=== PATIENT | male | born 1960 | race Caucasian/White ===

== ENCOUNTER 2016-07-20 15:19 | Inpatient (IN) | payer MEDICAID ==
[~2016-07-20] VITALS: Ht 180.3 cm; Wt 101.4 kg
[~2016-07-20 15:19] MED LIST: AMLO5TAB2 PO; ASPI-498 OR; ATOR20TA PO; BENA20TA4 PO; FAMO-12 PO; GABA100C PO; MELO-85 PO; NOR5T PO; TEMA15CA5 PO; TIZA4CAP5 PO
[2016-07-20 15:52] LABS: Basophils # (auto) 0 uL; Basophils % (auto) 0.5 % (0.0-2.0); Eosinophils # (auto) 0.1 uL; Eosinophils % (auto) 1.6 % (0.0-7.0); Hematocrit 46.5 % (41.0-53.0); Lymphocytes # (auto) 1.6 uL; Lymphocytes % (auto) 20.2 % (10.0-50.0); Mean Corpuscular Hemoglobin 28.6 pg (28.0-32.0); Mean Corpuscular Hgb Conc. 32.3 g/dL (32.0-36.0); Mean Corpuscular Volume 88.6 fL (80.0-100.0); Mean Platelet Volume 8.5 fL (7.4-10.4); Monocytes # (auto) 0.7 uL; Monocytes % (auto) 8.3 % (0.0-12.0); Neutrophils # (auto) 5.6 uL; Neutrophils % (auto) 69.4 % (37.0-80.0); Platelet Count (auto) 318 10^3/uL (140-450); Red Cell Distribution Width 13.8 % (11.6-16.0); White Blood Cell 8.1 10^3/uL (4.4-10.8)
[2016-07-20 16:15] LABS: Albumin 4.5 g/dL (3.4-5.0); BUN/Creatinine Ratio 13.3; Bilirubin, Total 1.1 mg/dL (0.2-1.0); Calcium 9.1 mg/dL (8.5-10.1); Magnesium 2.5 mg/dL (1.6-2.6); Potassium 3.8 mmol/L (3.5-5.1); Total Protein 8.3 g/dL (6.4-8.2)
[2016-07-20] MEDS ORDERED: ASPirin 81 mg TAB PO ONE (19:30)
[2016-07-20] MEDS ORDERED: MORPHINE SULF INJ 2 MG/ML SYRINGE 1ML IV ONE (19:45)
[2016-07-20] MEDS ORDERED: ONDANSETRON HCL 4 MG/2 ML VIAL IV ONE (19:45)
[2016-07-20 20:01] LABS: INR 1.04 (0.9-1.15); Partial Thromboplastin Time 25.4 sec (22.64-33.71); Prothrombin Time 10.7 sec (9.37-12.3)
[2016-07-20 20:10] LABS: B-Type Natriuretic Peptide 12.13 pg/mL (0-100)
[2016-07-20 20:12] LABS: Temperature: 22.7 C (20.0-25.0)
[2016-07-20] MEDS ORDERED: NITROGLYCERIN 0.4 MG SL TAB SL PRN (22:15)
[2016-07-20] MEDS ORDERED: ACETAMINOPHEN 325 MG TAB PO PRN (22:15)
[2016-07-20] MEDS ORDERED: ONDANSETRON HCL 4 MG/2 ML VIAL IV PRN (22:15)
[2016-07-20] MEDS ORDERED: MORPHINE SULF INJ 2 MG/ML SYRINGE 1ML IV PRN (22:15)
[2016-07-21] MEDS ORDERED: METO25TA62 PO (01:27)
[2016-07-21 05:30] VITALS: BP 105/63
[2016-07-21 05:49] LABS: Basophils # (auto) 0 uL; Basophils % (auto) 0.6 % (0.0-2.0); Eosinophils # (auto) 0.1 uL; Eosinophils % (auto) 1.9 % (0.0-7.0); Hematocrit 43.9 % (41.0-53.0); Hemoglobin 14.1 g/dL (13.5-17.5); Lymphocytes # (auto) 2.3 uL; Lymphocytes % (auto) 31.1 % (10.0-50.0); Mean Corpuscular Hemoglobin 28.6 pg (28.0-32.0); Mean Corpuscular Hgb Conc. 32.1 g/dL (32.0-36.0); Mean Corpuscular Volume 89.3 fL (80.0-100.0); Mean Platelet Volume 8.6 fL (7.4-10.4); Monocytes # (auto) 0.8 uL; Monocytes % (auto) 11.3 % (0.0-12.0); Neutrophils # (auto) 4.1 uL; Neutrophils % (auto) 55.1 % (37.0-80.0); Platelet Count (auto) 304 10^3/uL (140-450); Red Cell Distribution Width 13.5 % (11.6-16.0); White Blood Cell 7.4 10^3/uL (4.4-10.8)
[2016-07-21] MEDS: GABAPENTIN 100 MG CAP PO SCH ×3 (06:02→21:33)
[2016-07-21 06:16] LABS: Albumin 3.7 g/dL (3.4-5.0); BUN/Creatinine Ratio 13.5; Bilirubin, Total 0.9 mg/dL (0.2-1.0); Calcium 8.8 mg/dL (8.5-10.1); Potassium 4.3 mmol/L (3.5-5.1); Total Protein 7.1 g/dL (6.4-8.2)
[2016-07-21 08:25] VITALS: BP 111/66
[2016-07-21] MEDS ORDERED: TAM04C PO (08:44)
[2016-07-21] MEDS ORDERED: MAGN400T21 PO (08:44)
[2016-07-21] MEDS ORDERED: ATOR40TA52 PO (08:44)
[2016-07-21] MEDS ORDERED: METO-169 PO (08:44)
[2016-07-21] MEDS ORDERED: FINA5TAB4 PO (08:44)
[2016-07-21] MEDS: ASPirin 81 mg TAB PO SCH (09:20)
[2016-07-21] MEDS: BENAZEPRIL HCL 10 MG TAB PO SCH (09:21)
[2016-07-21] MEDS: amLODIPine BESYLATE 5 MG TAB PO SCH (09:22)
[2016-07-21] MEDS: FAMOTIDINE 20 MG TAB PO SCH ×2 (09:22→21:34)
[2016-07-21] MEDS: HYDROcodone-ACET 5/325MG TAB PO PRN (09:23)
[2016-07-21] MEDS: ENOXAPARIN SOD 40 MG/0.4 ML SYRINGE SC SCH (09:23)
[2016-07-21 12:45] VITALS: BP 118/70
[2016-07-21 17:21] VITALS: BP 124/76
[2016-07-21] MEDS: ATORVASTATIN 20 MG TAB PO SCH (21:33)
[2016-07-21] MEDS: TEMAZEPAM 15 MG CAP PO PRN (21:34)
[2016-07-21 22:00] VITALS: BP 106/64
[2016-07-22 05:00] VITALS: BP 106/64
[2016-07-22] MEDS: GABAPENTIN 100 MG CAP PO SCH ×3 (05:45→21:13)
[2016-07-22] MEDS: HYDROcodone-ACET 5/325MG TAB PO PRN ×2 (05:46→20:15)
[2016-07-22 06:19] LABS: Calcium 8.8 mg/dL (8.5-10.1); Potassium 4.5 mmol/L (3.5-5.1)
[2016-07-22 06:21] LABS: BUN/Creatinine Ratio 14.1
[2016-07-22 09:00] VITALS: BP 107/69
[2016-07-22] MEDS: FAMOTIDINE 20 MG TAB PO SCH ×2 (09:57→21:14)
[2016-07-22] MEDS: ASPirin 81 mg TAB PO SCH (09:58)
[2016-07-22] MEDS: amLODIPine BESYLATE 5 MG TAB PO SCH (09:58)
[2016-07-22] MEDS: ENOXAPARIN SOD 40 MG/0.4 ML SYRINGE SC SCH (09:58)
[2016-07-22] MEDS: BENAZEPRIL HCL 10 MG TAB PO SCH (09:58)
[2016-07-22] MEDS ORDERED: METOPROLOL TARTRATE 25 MG TAB PO SCH (11:00)
[2016-07-22 13:00] VITALS: BP 107/70
[2016-07-22 17:00] VITALS: BP 104/68
[2016-07-22 21:02] VITALS: BP 114/71
[2016-07-22] MEDS: METOPROLOL TARTRATE 25 MG TAB PO SCH (21:13)
[2016-07-22] MEDS: TEMAZEPAM 15 MG CAP PO PRN (21:14)
[2016-07-22] MEDS: ATORVASTATIN 20 MG TAB PO SCH (21:14)
[2016-07-23 05:04] VITALS: BP 116/69
[2016-07-23] MEDS: GABAPENTIN 100 MG CAP PO SCH ×2 (05:38→14:14)
[2016-07-23] MEDS: HYDROcodone-ACET 5/325MG TAB PO PRN (05:45)
[2016-07-23 09:00] VITALS: BP 124/73
[2016-07-23] MEDS: ENOXAPARIN SOD 40 MG/0.4 ML SYRINGE SC SCH (09:41)
[2016-07-23] MEDS: FAMOTIDINE 20 MG TAB PO SCH (09:41)
[2016-07-23] MEDS: ASPirin 81 mg TAB PO SCH (09:42)
[2016-07-23] MEDS: BENAZEPRIL HCL 10 MG TAB PO SCH (09:42)
[2016-07-23] MEDS: METOPROLOL TARTRATE 25 MG TAB PO SCH (09:43)
[2016-07-23] MEDS: amLODIPine BESYLATE 5 MG TAB PO SCH (12:34)
[2016-07-23 14:55] VITALS: BP 119/79
== END 2016-07-23 15:30 | disposition home or self-care (01) | DRG 198 ==
LOC: ER 15:24 → TELE 15:25 → TELE-WESTW 23:18
PROVIDERS: ADMIT Internal Medicine; ATTEND Internal Medicine
DX: R07.89 Other chest pain (principal); I25.110 Atherosclerotic heart disease of native coronary artery with unstable angina pectoris; G62.9 Polyneuropathy, unspecified; I10 Essential (primary) hypertension; E66.9 Obesity, unspecified; Z82.0 Family history of epilepsy and other diseases of the nervous system; Z82.3 Family history of stroke; Z82.49 Family history of ischemic heart disease and other diseases of the circulatory system; Z83.3 Family history of diabetes mellitus; Z86.73 Personal history of transient ischemic attack (TIA), and cerebral infarction without residual deficits; Z87.442 Personal history of urinary calculi; E78.5 Hyperlipidemia, unspecified; K21.9 Gastro-esophageal reflux disease without esophagitis; Z82.61 Family history of arthritis; Z88.8 Allergy status to other drugs, medicaments and biological substances
CPT/HCPCS: 36415; 71020; 80048; 80053; 83735; 83880; 84443; 84484; 85025; 85379; 85610; 85730; 93005; 93306; 94761; 96374; 96375; J2405

== ENCOUNTER 2016-10-21 22:17 | Inpatient (IN) | payer MEDICAID ==
[~2016-10-21] VITALS: Ht 180.3 cm; Wt 103.6 kg
[~2016-10-21 22:17] MED LIST changes: -ATOR20TA PO; +ATOR40TA52 PO; +FINA5TAB4 PO; +MAGN400T21 PO; +METO-169 PO; +TAM04C PO
[2016-10-21] MEDS ORDERED: PHENAZOPYRIDINE PO (23:03)
[2016-10-21] MEDS ORDERED: SULFAMETH PO (23:03)
[2016-10-21] MEDS ORDERED: TRIMETHOPRIM PO (23:03)
[2016-10-21 23:07] LABS: Basophils # (auto) 0 uL; Basophils % (auto) 0.3 % (0.0-2.0); Eosinophils # (auto) 0 uL; Eosinophils % (auto) 0.4 % (0.0-7.0); Hematocrit 41.9 % (41.0-53.0); Hemoglobin 14.4 g/dL (13.5-17.5); Lymphocytes # (auto) 1.7 uL; Lymphocytes % (auto) 17.4 % (10.0-50.0); Mean Corpuscular Hemoglobin 30.2 pg (28.0-32.0); Mean Corpuscular Hgb Conc. 34.3 g/dL (32.0-36.0); Mean Platelet Volume 8.6 fL (7.4-10.4); Monocytes # (auto) 0.8 uL; Monocytes % (auto) 7.8 % (0.0-12.0); Neutrophils # (auto) 7.4 uL; Neutrophils % (auto) 74.1 % (37.0-80.0); Platelet Count (auto) 333 10^3/uL (140-450); Red Cell Distribution Width 13.8 % (11.6-16.0)
[2016-10-21 23:20] LABS: Albumin 3.7 g/dL (3.4-5.0); Anion Gap 10 (5-15); Aspartate Aminotransferase 18 U/L (15-37); BUN/Creatinine Ratio 12.1; Blood Urea Nitrogen 12 mg/dL (7-18); Calcium 8.5 mg/dL (8.5-10.1); Carbon Dioxide 24 mmol/L (21-32); Chloride 106 mmol/L (98-107); GFR African American 102 mL/min; GFR Non-African American 84 mL/min; Glucose 117 mg/dL (74-106); Sodium 140 mmol/L (136-145)
[2016-10-21 23:28] LABS: B-Type Natriuretic Peptide 5.36 pg/mL (0-100)
[2016-10-21 23:30] LABS: Temperature: 23.3 C (20.0-25.0)
[2016-10-21 23:31] LABS: Alkaline Phosphatase 67 U/L (45-117); Bilirubin, Total 0.8 mg/dL (0.2-1.0); Total Protein 7.5 g/dL (6.4-8.2)
[2016-10-22 00:57] LABS: Urine Bilirubin Negative (Negative); Urine Blood 3+ /uL (Negative); Urine Color Brown (Yellow); Urine Glucose Normal (Normal); Urine Ketone Negative (Negative); Urine Nitrite Negative (Negative); Urine RBC 86 /hpf (0 - 3); Urine Urobilinogen Normal (Negative)
[2016-10-22 00:58] LABS: Urine Mucus FEW (None Seen); Urine Squamous Epithelial Cell FEW /hpf (<5)
[2016-10-22] MEDS ORDERED: ONDANSETRON HCL 4 MG/2 ML VIAL IV ONE (01:45)
[2016-10-22] MEDS ORDERED: HYDROmorphone HCL 2 MG/ML VL IV ONE (01:45)
[2016-10-22] MEDS ORDERED: LORazepam 2MG/ML-1ML VIAL IV ONE (02:00)
[2016-10-22] MEDS ORDERED: ONDANSETRON HCL 4 MG/2 ML VIAL IV PRN (06:45)
[2016-10-22] MEDS ORDERED: HYDROcodone-ACET 5/325MG TAB PO PRN (06:45)
[2016-10-22] MEDS ORDERED: ACETAMINOPHEN 325 MG TAB PO PRN (06:45)
[2016-10-22] MEDS: SODIUM CHLORIDE 0.9% 1,000 ML IV SCH ×2 (06:48→21:08)
[2016-10-22 09:00] VITALS: BP 112/68
[2016-10-22 09:14] LABS: Hematocrit 42.4 % (41.0-53.0); Hemoglobin 14.3 g/dL (13.5-17.5)
[2016-10-22] MEDS: METOPROLOL SUCCINATE XL 50 MG TAB PO SCH (10:00)
[2016-10-22] MEDS: BENAZEPRIL HCL 10 MG TAB PO SCH (10:00)
[2016-10-22] MEDS: FINASTERIDE 5 MG TAB PO SCH (10:49)
[2016-10-22] MEDS: amLODIPine BESYLATE 5 MG TAB PO SCH (10:49)
[2016-10-22] MEDS: FAMOTIDINE 20 MG TAB PO SCH ×2 (10:49→21:31)
[2016-10-22] MEDS: cefTRIAXone 1GM/50ML D5W 50 ML IV SCH (10:50)
[2016-10-22] MEDS ORDERED: OXYCODONE W/ ACETAMINOPHEN 5/325MG TABLET PO PRN (11:15)
[2016-10-22] MEDS: OXYCODONE W/ ACETAMINOPHEN 5/325MG TABLET PO PRN (11:48)
[2016-10-22 13:00] VITALS: BP 114/70
[2016-10-22] MEDS: GABAPENTIN 300 MG CAP PO SCH ×2 (14:12→21:31)
[2016-10-22 17:00] VITALS: BP 120/68
[2016-10-22] MEDS: TEMAZEPAM 15 MG CAP PO PRN (21:31)
[2016-10-22] MEDS: ATORVASTATIN 20 MG TAB PO SCH (21:31)
[2016-10-22] MEDS: KETOROLAC TROMETH 30 MG/ML 1ML VIAL IV PRN (21:32)
[2016-10-22 22:00] VITALS: BP 134/84
[2016-10-23 05:00] VITALS: BP 133/89
[2016-10-23] MEDS: GABAPENTIN 300 MG CAP PO SCH ×3 (05:44→22:34)
[2016-10-23] MEDS: KETOROLAC TROMETH 30 MG/ML 1ML VIAL IV PRN ×2 (05:45→15:55)
[2016-10-23 05:46] LABS: Basophils # (auto) 0 uL; Basophils % (auto) 0.6 % (0.0-2.0); Eosinophils # (auto) 0.3 uL; Hematocrit 41.2 % (41.0-53.0); Hemoglobin 13.9 g/dL (13.5-17.5); Lymphocytes # (auto) 2.1 uL; Lymphocytes % (auto) 31.2 % (10.0-50.0); Mean Corpuscular Hemoglobin 29.7 pg (28.0-32.0); Mean Corpuscular Hgb Conc. 33.8 g/dL (32.0-36.0); Mean Corpuscular Volume 87.9 fL (80.0-100.0); Mean Platelet Volume 8.5 fL (7.4-10.4); Monocytes # (auto) 0.6 uL; Monocytes % (auto) 9.3 % (0.0-12.0); Neutrophils # (auto) 3.6 uL; Neutrophils % (auto) 54.9 % (37.0-80.0); Platelet Count (auto) 317 10^3/uL (140-450); Red Cell Distribution Width 13.4 % (11.6-16.0); White Blood Cell 6.6 10^3/uL (4.4-10.8)
[2016-10-23 06:03] LABS: Potassium 4.4 mmol/L (3.5-5.1)
[2016-10-23 06:07] LABS: Albumin 3.2 g/dL (3.4-5.0); BUN/Creatinine Ratio 18.3; Calcium 8.6 mg/dL (8.5-10.1)
[2016-10-23 06:09] LABS: Bilirubin, Total 0.6 mg/dL (0.2-1.0); Total Protein 6.8 g/dL (6.4-8.2)
[2016-10-23 08:16] VITALS: BP 122/65
[2016-10-23] MEDS: OXYCODONE W/ ACETAMINOPHEN 5/325MG TABLET PO PRN (09:57)
[2016-10-23] MEDS: cefTRIAXone 1GM/50ML D5W 50 ML IV SCH (09:57)
[2016-10-23] MEDS: FAMOTIDINE 20 MG TAB PO SCH ×2 (10:00→22:34)
[2016-10-23] MEDS: FINASTERIDE 5 MG TAB PO SCH (10:00)
[2016-10-23] MEDS: BENAZEPRIL HCL 10 MG TAB PO SCH (10:00)
[2016-10-23] MEDS: METOPROLOL SUCCINATE XL 50 MG TAB PO SCH (10:00)
[2016-10-23] MEDS: amLODIPine BESYLATE 5 MG TAB PO SCH (10:00)
[2016-10-23] MEDS: SODIUM CHLORIDE 0.9% 1,000 ML IV SCH (11:49)
[2016-10-23 13:00] VITALS: BP 132/79
[2016-10-23] MEDS ORDERED: MECLIZINE HCL 25 MG TAB PO PRN (14:45)
[2016-10-23 16:41] VITALS: BP 111/75
[2016-10-23 21:04] VITALS: BP 110/70
[2016-10-23] MEDS: ATORVASTATIN 20 MG TAB PO SCH (22:34)
[2016-10-23] MEDS: TEMAZEPAM 15 MG CAP PO PRN (22:37)
[2016-10-24] MEDS: SODIUM CHLORIDE 0.9% 1,000 ML IV SCH (03:20)
[2016-10-24 05:00] VITALS: BP 101/69
[2016-10-24] MEDS: GABAPENTIN 300 MG CAP PO SCH (05:52)
[2016-10-24] MEDS ORDERED: MECL-87 PO (08:01)
[2016-10-24 08:41] VITALS: BP 121/71
[2016-10-24] MEDS: cefTRIAXone 1GM/50ML D5W 50 ML IV SCH (09:00)
[2016-10-24] MEDS: FINASTERIDE 5 MG TAB PO SCH (09:58)
[2016-10-24] MEDS: METOPROLOL SUCCINATE XL 50 MG TAB PO SCH (09:58)
[2016-10-24] MEDS: FAMOTIDINE 20 MG TAB PO SCH (09:58)
[2016-10-24] MEDS: amLODIPine BESYLATE 5 MG TAB PO SCH (09:58)
[2016-10-24] MEDS: BENAZEPRIL HCL 10 MG TAB PO SCH (09:59)
== END 2016-10-24 10:00 | disposition home or self-care (01) | DRG 466 ==
LOC: EDSEX 22:17 → EDBD 22:17 → ER 22:19 → OVERFLOW 22:20 → WEST WING 10-22 07:28 → EAST 10-22 08:10 → WEST WING 10-22 09:56
PROVIDERS: ADMIT Internal Medicine; ATTEND Internal Medicine
DX: T83.84XA Pain due to genitourinary prosthetic devices, implants and grafts, initial encounter (principal); K76.0 Fatty (change of) liver, not elsewhere classified; R31.9 Hematuria, unspecified; T83.89XA Other specified complication of genitourinary prosthetic devices, implants and grafts, initial encounter; K40.90 Unilateral inguinal hernia, without obstruction or gangrene, not specified as recurrent; D35.02 Benign neoplasm of left adrenal gland; N20.1 Calculus of ureter; I10 Essential (primary) hypertension; R42 Dizziness and giddiness; F41.9 Anxiety disorder, unspecified; N20.0 Calculus of kidney; I25.10 Atherosclerotic heart disease of native coronary artery without angina pectoris; Y83.8 Other surgical procedures as the cause of abnormal reaction of the patient, or of later complication, without mention of misadventure at the time of the procedure; Z86.73 Personal history of transient ischemic attack (TIA), and cerebral infarction without residual deficits; Z88.6 Allergy status to analgesic agent; Z88.8 Allergy status to other drugs, medicaments and biological substances; Z79.899 Other long term (current) drug therapy; Z79.82 Long term (current) use of aspirin; Z90.49 Acquired absence of other specified parts of digestive tract; Z82.49 Family history of ischemic heart disease and other diseases of the circulatory system; Z83.3 Family history of diabetes mellitus; Z82.0 Family history of epilepsy and other diseases of the nervous system; Z82.3 Family history of stroke; Z82.61 Family history of arthritis; Y92.89 Other specified places as the place of occurrence of the external cause
CPT/HCPCS: 36415; 70450; 71010; 74176; 80053; 81001; 83880; 84484; 85014; 85018; 85025; 87086; 93005; 96365; 96375; J0696; J1885; J2405

== ENCOUNTER 2017-04-13 19:59 | Emergency (ER) | payer MEDICAID, OTHER ==
[~2017-04-13] VITALS: Ht 180.3 cm; Wt 94.3 kg
[~2017-04-13 19:59] MED LIST changes: -ASPI-498 OR; +BENA20TA14 PO; -BENA20TA4 PO; -MAGN400T21 PO; +MECL-87 PO; -MELO-85 PO; +MELO1TAB73 PO; -METO-169 PO; -NOR5T PO; +PHENAZOPYRIDINE PO; +SULFAMETH PO; +TRIMETHOPRIM PO
[2017-04-13 21:12] LABS: Basophils # (auto) 0 uL; Basophils % (auto) 0.7 % (0.0-2.0); Eosinophils # (auto) 0.1 uL; Eosinophils % (auto) 1.5 % (0.0-7.0); Hematocrit 45.7 % (41.0-53.0); Hemoglobin 15.4 g/dL (13.5-17.5); Lymphocytes # (auto) 1.8 uL; Lymphocytes % (auto) 27.3 % (10.0-50.0); Mean Corpuscular Hemoglobin 29.5 pg (28.0-32.0); Mean Corpuscular Hgb Conc. 33.7 g/dL (32.0-36.0); Mean Corpuscular Volume 87.7 fL (80.0-100.0); Monocytes # (auto) 0.5 uL; Monocytes % (auto) 8.2 % (0.0-12.0); Neutrophils % (auto) 62.3 % (37.0-80.0); Nucleated Red Blood Cells % 0.1 %; Platelet Count (auto) 339 10^3/uL (140-450); Red Blood Cells 5.21 10^6/uL (4.5-5.90); Red Cell Distribution Width 14.1 % (11.8-14.3); White Blood Cell 6.5 10^3/uL (4.4-10.8)
[2017-04-13 21:17] LABS: Urine Bacteria NONE SEEN /hpf (None Seen); Urine Blood Negative /uL (Negative); Urine Specific Gravity 1.002 (1.001-1.035); Urine WBC <1 /hpf (0 - 3)
[2017-04-13 21:22] LABS: INR 0.98 (0.9-1.15); Partial Thromboplastin Time 25.1 sec (22.64-33.71); Prothrombin Time 10.7 sec (9.37-12.3)
[2017-04-13 21:28] LABS: Albumin 4.3 g/dL (3.4-5.0); Anion Gap 9 (5-15); BUN/Creatinine Ratio 6.6; Blood Urea Nitrogen 7 mg/dL (7-18); Calcium 9.5 mg/dL (8.5-10.1); Carbon Dioxide 28 mmol/L (21-32); Chloride 107 mmol/L (98-107); GFR African American 94 mL/min; GFR Non-African American 77 mL/min; Glucose 112 mg/dL (74-106); Potassium 4.4 mmol/L (3.5-5.1); Sodium 144 mmol/L (136-145)
[2017-04-13 21:33] LABS: Alanine Aminotransferase 39 U/L (16-61); Alkaline Phosphatase 65 U/L (45-117); Aspartate Aminotransferase 19 U/L (15-37); Bilirubin, Total 0.6 mg/dL (0.2-1.0); Total Protein 8.3 g/dL (6.4-8.2)
[2017-04-13 23:45] VITALS: BP 111/75
[2017-04-14] MEDS ORDERED: PANTOPRAZOLE 40 MG TAB PO ONE (00:15)
== END 2017-04-14 01:24 | disposition home or self-care (01) ==
LOC: ER 19:59
DX: K29.70 Gastritis, unspecified, without bleeding (principal); R00.2 Palpitations; I25.10 Atherosclerotic heart disease of native coronary artery without angina pectoris; I10 Essential (primary) hypertension; Z87.442 Personal history of urinary calculi; Z86.73 Personal history of transient ischemic attack (TIA), and cerebral infarction without residual deficits
CPT/HCPCS: 36415; 71010; 80053; 81001; 83880; 84484; 85025; 85610; 85730; 93005; 94761

== ENCOUNTER 2021-03-02 06:55 | Emergency (ER) | payer MEDICARE, MEDICAID ==
[~2021-03-02] VITALS: Ht 180.3 cm; Wt 99.8 kg
[~2021-03-02 06:55] MED LIST changes: +AMLO-489 PO; -AMLO5TAB2 PO; +LEVO500T31 PO; -MECL-87 PO; +MECL25TA18 PO; -MELO1TAB73 PO; +METR500T PO; -SULFAMETH PO; +TIZA4CAP PO; -TIZA4CAP5 PO; -TRIMETHOPRIM PO
[2021-03-02] MEDS ORDERED: SODIUM CHLORIDE 0.9% 1,000 ML IVB ONE (07:15)
[2021-03-02] MEDS ORDERED: ONDANSETRON HCL 4 MG/2 ML VIAL IV ONE (07:15)
[2021-03-02] MEDS ORDERED: SODIUM CHLORIDE 0.9% 1,000 ML IV ONE (07:15)
[2021-03-02] MEDS ORDERED: LORazepam 2MG/ML-1ML VIAL ONE (07:27)
[2021-03-02 07:39] LABS: Basophils # (auto) 0.1 10 ^3/uL (0-0.2); Basophils % (auto) 0.9 % (0.0-2.0); Eosinophils # (auto) 0 10 ^3/uL (0-0.8); Eosinophils % (auto) 0.2 % (0.0-7.0); Hematocrit 44.6 % (41.0-53.0); Hemoglobin 15.4 g/dL (13.5-17.5); Lymphocytes # (auto) 2.4 10 ^3/uL (0.4-5.4); Lymphocytes % (auto) 24.4 % (10.0-50.0); Mean Corpuscular Hemoglobin 30.3 pg (28.0-32.0); Mean Corpuscular Hgb Conc. 34.6 g/dL (32.0-36.0); Mean Corpuscular Volume 87.5 fL (80.0-100.0); Monocytes # (auto) 0.8 10 ^3/uL (0-1.3); Monocytes % (auto) 7.9 % (0.0-12.0); Neutrophils # (auto) 6.7 10 ^3/uL (1.6-8.6); Neutrophils % (auto) 66.6 % (37.0-80.0); Nucleated Red Blood Cells % 0.1 %; Red Blood Cells 5.09 10^6/uL (4.5-5.90); Red Cell Distribution Width 14.4 % (11.8-14.3)
[2021-03-02] MEDS ORDERED: LORazepam 2MG/ML-1ML VIAL IV ONE (07:45)
[2021-03-02 08:00] LABS: Albumin 3.7 g/dL (3.4-5.0); Anion Gap 14 (5-15); BUN/Creatinine Ratio 15.5; Blood Urea Nitrogen 13 mg/dL (7-18); Calcium 8.7 mg/dL (8.5-10.1); Carbon Dioxide 20 mmol/L (21-32); Chloride 103 mmol/L (98-107); GFR African American 121 mL/min; GFR Non-African American 100 mL/min; Glucose 120 mg/dL (74-106); Potassium 3.8 mmol/L (3.5-5.1); Sodium 137 mmol/L (136-145)
[2021-03-02 08:01] LABS: Urine Bacteria NONE SEEN /hpf (None Seen); Urine Blood Negative /uL (Negative); Urine Specific Gravity 1.004 (1.001-1.035); Urine WBC 1 /hpf (0 - 3)
[2021-03-02 08:02] LABS: Amphetamine Screen, Urine NEGATIVE (NEGATIVE); Barbiturate Scree,Urine NEGATIVE (NEGATIVE); Benzodiazephine Screen, Urine NEGATIVE (NEGATIVE); Cannabinoid Screen, Urine NEGATIVE (NEGATIVE); Cocaine Screen, Urine POSITIVE (NEGATIVE); Opiate Scree,Urine NEGATIVE (NEGATIVE); Phencyclidine Screen, Urine NEGATIVE (NEGATIVE)
[2021-03-02 08:08] LABS: Alanine Aminotransferase 35 U/L (16-61); Alkaline Phosphatase 54 U/L (45-117); Aspartate Aminotransferase 18 U/L (15-37); Bilirubin, Total 0.5 mg/dL (0.2-1.0); Total Protein 7.7 g/dL (6.4-8.2)
[2021-03-02 10:53] VITALS: BP 107/68
== END 2021-03-02 11:00 | disposition home or self-care (01) ==
LOC: EDBD 06:55 → ER 06:55
DX: R07.89 Other chest pain (principal); F14.10 Cocaine abuse, uncomplicated; F41.9 Anxiety disorder, unspecified; F10.10 Alcohol abuse, uncomplicated; R00.0 Tachycardia, unspecified; E78.5 Hyperlipidemia, unspecified; I10 Essential (primary) hypertension; E11.9 Type 2 diabetes mellitus without complications; I25.10 Atherosclerotic heart disease of native coronary artery without angina pectoris; F17.210 Nicotine dependence, cigarettes, uncomplicated; Y90.3 Blood alcohol level of 60-79 mg/100 ml; Z88.6 Allergy status to analgesic agent; Z79.899 Other long term (current) drug therapy; Z86.73 Personal history of transient ischemic attack (TIA), and cerebral infarction without residual deficits; Z87.442 Personal history of urinary calculi; Z90.89 Acquired absence of other organs
CPT/HCPCS: 36415; 71046; 80053; 80307; 81001; 83735; 84443; 84484; 85025; 93005; 96361; 96374; 96375; 99285; J2060; J2405; J7030

== ENCOUNTER 2022-01-04 09:24 | Emergency (ER) | payer MEDICARE, MEDICAID ==
[~2022-01-04] VITALS: Ht 180.3 cm; Wt 94.5 kg
[2022-01-04 10:31] LABS: Albumin 4.1 g/dL (3.4-5.0); Magnesium 2.3 mg/dL (1.6-2.6); Potassium 4.1 mmol/L (3.5-5.1)
[2022-01-04 10:34] LABS: BUN/Creatinine Ratio 19.2; Bilirubin, Total 0.4 mg/dL (0.2-1.0); Total Protein 8.3 g/dL (6.4-8.2)
[2022-01-04 10:46] LABS: INR 0.92 (0.9-1.15); Partial Thromboplastin Time 25.7 sec (24.6-33.4)
[2022-01-04 10:47] LABS: Urine Bacteria NONE SEEN /hpf (None Seen); Urine Blood Negative /uL (Negative); Urine Mucus FEW (None Seen); Urine Specific Gravity 1.027 (1.001-1.035); Urine WBC 1 /hpf (0 - 3)
[2022-01-04 10:53] LABS: Basophils # (auto) 0.1 10 ^3/uL (0-0.2); Basophils % (auto) 0.8 % (0.0-2.0); Eosinophils # (auto) 0.1 10 ^3/uL (0-0.8); Eosinophils % (auto) 0.8 % (0.0-7.0); Hematocrit 48.1 % (41.0-53.0); Hemoglobin 15.6 g/dL (13.5-17.5); Lymphocytes # (auto) 2.2 10 ^3/uL (0.4-5.4); Lymphocytes % (auto) 24.9 % (10.0-50.0); Mean Corpuscular Hemoglobin 28.7 pg (28.0-32.0); Mean Corpuscular Hgb Conc. 32.4 g/dL (32.0-36.0); Mean Corpuscular Volume 88.6 fL (80.0-100.0); Monocytes # (auto) 0.8 10 ^3/uL (0-1.3); Monocytes % (auto) 8.8 % (0.0-12.0); Neutrophils # (auto) 5.7 10 ^3/uL (1.6-8.6); Neutrophils % (auto) 64.7 % (37.0-80.0); Red Blood Cells 5.43 10^6/uL (4.5-5.90); Red Cell Distribution Width 14.2 % (11.8-14.3); White Blood Cell 8.8 10^3/uL (4.4-10.8)
[2022-01-04 12:02] LABS: Amphetamine Screen, Urine NEGATIVE (NEGATIVE); Barbiturate Scree,Urine NEGATIVE (NEGATIVE); Benzodiazephine Screen, Urine NEGATIVE (NEGATIVE); Cannabinoid Screen, Urine NEGATIVE (NEGATIVE); Cocaine Screen, Urine POSITIVE (NEGATIVE)
[2022-01-04 12:10] LABS: Opiate Scree,Urine NEGATIVE (NEGATIVE); Phencyclidine Screen, Urine NEGATIVE (NEGATIVE)
[2022-01-04 13:48] VITALS: BP 138/76
== END 2022-01-04 13:52 | disposition home or self-care (01) ==
LOC: ER 09:24
DX: R07.89 Other chest pain (principal); I10 Essential (primary) hypertension; F14.10 Cocaine abuse, uncomplicated
CPT/HCPCS: 36415; 71045; 80053; 80307; 81001; 83735; 84443; 84484; 85025; 85610; 85730; 93005

== ENCOUNTER 2023-07-22 06:53 | Emergency (ER) | payer MEDICARE, MEDICAID ==
[~2023-07-22] VITALS: Ht 165.1 cm; Wt 100.0 kg
[~2023-07-22 06:53] MED LIST changes: -AMLO-489 PO; +AMLO1TAB22 PO; +BENA-36 PO; -BENA20TA14 PO; +MECL1TAB32 PO; -MECL25TA18 PO; -TAM04C PO; +TAMS-35 PO
[2023-07-22 09:21] LABS: Basophils # (auto) 0.1 10 ^3/uL (0-0.2); Basophils % (auto) 0.8 % (0.0-2.0); Eosinophils # (auto) 0.1 10 ^3/uL (0-0.8); Eosinophils % (auto) 0.8 % (0.0-7.0); Hemoglobin 15.1 g/dL (13.5-17.5); Lymphocytes # (auto) 2.4 10 ^3/uL (0.4-5.4); Mean Corpuscular Hemoglobin 29.2 pg (28.0-32.0); Mean Corpuscular Hgb Conc. 33.7 g/dL (32.0-36.0); Mean Corpuscular Volume 86.8 fL (80.0-100.0); Monocytes # (auto) 1.1 10 ^3/uL (0-1.3); Monocytes % (auto) 9.5 % (0.0-12.0); Neutrophils # (auto) 7.5 10 ^3/uL (1.6-8.6); Neutrophils % (auto) 66.9 % (37.0-80.0); Nucleated Red Blood Cells % 0.1 %; Red Blood Cells 5.18 10^6/uL (4.5-5.90); Red Cell Distribution Width 14.2 % (11.8-14.3); White Blood Cell 11.1 10^3/uL (4.4-10.8)
[2023-07-22 09:37] LABS: Chloride 108 mmol/L (98-107); Potassium 5.4 mmol/L (3.5-5.1); Sodium 139 mmol/L (136-145)
[2023-07-22 09:38] LABS: Anion Gap 4 (5-15); Carbon Dioxide 27 mmol/L (20-30)
[2023-07-22 09:43] LABS: BUN/Creatinine Ratio 9.7 (10.0-20.0); Blood Urea Nitrogen 9 mg/dL (9-23); Glucose 100 mg/dL (74-106)
[2023-07-22] MEDS: SODIUM CHLORIDE 0.9% 1,000 ML IVB ONE (11:55)
[2023-07-22] MEDS: KETOROLAC TROMETH 30 MG/ML 1ML VIAL IV ONE (12:00)
[2023-07-22] MEDS: ONDANSETRON HCL 4 MG/2 ML VIAL IV ONE (12:00)
[2023-07-22] MEDS: MORPHINE SULFATE 4 MG/ML SYR/VIAL IV ONE (12:02)
[2023-07-22] MEDS ORDERED: TRAM50TA2 PO (15:00)
[2023-07-22] MEDS ORDERED: ZOFR4T PO (15:00)
[2023-07-22 16:40] VITALS: BP 156/80; PULSE 70; RESP 18; TEMP 98.4; O2SAT 95
== END 2023-07-22 16:41 | disposition home or self-care (01) ==
LOC: ER 06:53 → EDBD 06:53 → ER 16:41
DX: R10.9 Unspecified abdominal pain (principal); F17.210 Nicotine dependence, cigarettes, uncomplicated; F12.10 Cannabis abuse, uncomplicated; F14.10 Cocaine abuse, uncomplicated; E78.5 Hyperlipidemia, unspecified; I10 Essential (primary) hypertension; Z86.73 Personal history of transient ischemic attack (TIA), and cerebral infarction without residual deficits; Z88.6 Allergy status to analgesic agent; Z87.442 Personal history of urinary calculi
CPT/HCPCS: 36415; 74176; 80048; 85025; 93005; 96361; 96374; 96375; 99285; J1885; J2270; J2405; J7030

== ENCOUNTER 2024-04-02 04:46 | Inpatient (IN) | payer MEDICARE, MEDICAID ==
[2024-04-02] VITALS (7 sets, daily range): BP systolic 101–144; BP diastolic 64–89; PULSE 60–82; RESP 12–18; TEMP 98.2–98.6; O2SAT 91–98
[~2024-04-02] VITALS: Ht 180.3 cm; Wt 105.2 kg
[~2024-04-02 04:46] MED LIST changes: +MECL-90 PO; -MECL1TAB32 PO; +TRAM50TA2 PO; +ZOFR4T PO
--- NOTE | 2024-04-02 05:28 | ECG ---
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
--- NOTE | 2024-04-02 05:35 | ED.PDOC ---
HPI Comments 63-year-old male who came to ER due to chest pains. Patient does have history of hypertension and episodes of chest pains. States he has been drinking alcohol last night, went home states he was feeling unwell, was having palpitations, dizziness, chest pains, shortness of breath. Noted that his blood pressure was elevated at 188/112 mm Hg. As he was waiting in the lobby patient had a syncopal attack. Chief Complaint: Chest Pain Time Seen by MD: 05:34 Primary Care Provider: KITTY HOFFMAN Reviewed Notes: Nurses Notes Allergies: Coded Allergies: Ibuprofen (Verified Allergy, Unknown, 02/22/15) Uncoded Allergies: MUSCLE RELAXERS (Allergy, Unknown, 02/22/15) Home Meds Active Scripts Tramadol Hcl (Tramadol Hcl) 50 Mg Tab, 50 MG PO Q12HP PRN for 5 Days, #10 TAB Prov:CHANEL SCHWARTZ MD 07/22/23 Ondansetron Odt 4MG Tab (ZOFRAN PO) 4 Mg Tb, 4 MG PO Q8HP PRN for 5 Days, #15 TAB ODT TAB-DISSOLVE IN MOUTH, THEN SWALLOW Prov:CHANEL SCHWARTZ MD 07/22/23 Metronidazole (Flagyl) 500 Mg Tab, 500 MG PO TID, #30 Prov:GEORGE JACOB MD 06/21/18 Levofloxacin (Levaquin) 500 Mg Tab, 500 MG PO DAILY, #10 Prov:GEORGE JACOB MD 06/21/18 Meclizine Hcl (Meclizine Hcl) 25 Mg Tab, 25 MG PO Q6HPRN PRN for DIZZINESS, #20 TAB Prov:ANIA BERGERON MD 10/24/16 Reported Medications [Phenazopyridine] No Conflict Check, 100 MG PO BID, #40 10/21/16 Finasteride (Finasteride) 5 Mg Tab, 5 MG PO DAILY, TAB 07/21/16 Tamsulosin Hcl (Flomax) 0.4 Mg Cap, 0.4 MG PO DAILY, CAP 07/21/16 Atorvastatin Calcium (ATORVASTATIN CALCIUM) 40 Mg Tab, 40 MG PO, TAB 07/21/16 Famotidine (Famotidine) 20 Mg Tab, 20 MG PO, TAB 04/08/16 Temazepam (Restoril) 15 Mg Cap, 15 MG PO, CAP 04/08/16 Tizanidine Hydrochloride (Zanaflex) 4 Mg Cap, 1 CAP PO DAILY, #30 CAP 02/10/16 Benazepril Hcl (Benazepril Hcl) 20 Mg Tab, 10 MG PO DAILY for 30 Days, MG 02/10/16 Amlodipine Besylate (Amlodipine Besylate) 5 Mg Tab, 5 MG PO DAILY for 30 Days, MG 02/10/16 Gabapentin (Neurontin) 100 Mg Cap, 3 CAP PO TID, #90 CAP 2 Refills 12/07/15 Information Source: Patient Mode of Arrival: Ambulatory Severity: Moderate Timing: Hours Duration: Intermittent Prehospital treatment: None Location: Substernal Radiation: No Radiation Quality: Pressure Onset: With Light Exertion Cardiac Risk Factors: Hyperlipidemia, HTN History of: Similar pain in past Modifying Factors: Nothing Associated Signs and Symptoms: SOB, Palpitations, Diaphoresis Past Medical History PAST MEDICAL HISTORY: Angina, Anxiety, CAD, CVA, High Lipids, HTN, Kidney Stones, TIA Surgical History: Appendectomy Family History Family History: Reviewed,noncontributory to illness Social History Smoker: Cigarettes Alcohol: Occasionally Drugs: Cocaine Lives In: Home Constitutional: reports: weakness; denies: chills, diaphoresis, fatigue, fever, malaise, sweats, others EENTM: denies: blurred vision, double vision, ear bleeding, ear discharge, ear drainage, ear pain, ear ringing, eye pain, eye redness, hearing loss, mouth pain, mouth swelling, nasal discharge, nose bleeding, nose congestion, nose pain, photophobia, tearing, throat pain, throat swelling, voice changes, others Respiratory: reports: SOB at rest, shortness of breath; denies: cough, hemoptysis, orthopnea, SOB with excertion, stridor, wheezing, others Cardiovascular: reports: chest pain, dizzy spells, diaphoresis, palpitations, syncope; denies: Dyspnea on exertion, edema, irregular heart beat, left arm pain, lightheadedness, PND, others Gastrointestinal: denies: abdomen distended, abdominal pain, blood streaked bowels, constipated, diarrhea, dysphagia, difficulty swallowing, hematemesis, melena, nausea, poor appetite, poor fluid intake, rectal bleeding, rectal pain, vomiting, others Genitourinary: denies: burning, dysuria, flank pain, frequency, hematuria, incontinence, penile discharge, penile sore, pain, testicle pain, testicle swelling, urgency, others Neurological: denies: dizziness, fainting, headache, left sided numbness, left sided weakness, numbness, paresthesia, pre-existing deficit, right sided numbness, right sided weakness, seizure, speech problems, tingling, tremors, weakness, others Musculoskeletal: denies: back pain, gout, joint pain, joint swelling, muscle pa in, muscle stiffness, neck pain, others Integumetry: denies: bruises, change in color, change in hair/nails, dryness, laceration, lesions, lumps, rash, wounds, others Allergic/Immunocompromised: denies: Difficulty Healing, Frequent Infections, Hives, Itching, others Hematologic/Lymphatic: denies: anemia, blood clots, easy bleeding, easy bruising, swollen glands, others Endocrine: denies: excessive hunger, excessive sweating, excessive thirst, excessive urination, flushing, intolerance to cold, intolerance to heat, unexplained weight gain, unexplained weight loss, others Psychiatric: denies: anxiety, bipolar disorder, depression, hopeless, panic disorder, schizophrenia, sleepless, suicidal, others Physical Exam General Appearance: No Apparent Distress, Normal HEENT: Normal ENT Inspection, Pharynx Normal, TMs Normal Neck: Full Range of Motion, Non-Tender, Normal, Normal Inspection Respiratory: Chest Non-Tender, Lungs Clear, No Accessory Muscle Use, No Respiratory Distress, Normal Breath Sounds Cardiovascular: No Edema, No JVD, No Murmur, No Gallop, Normal Peripheral Pulses, Regular Rate/Rhythm Breast Exam: Deferred Gastrointestinal: No Organomegaly, Non Tender, No Pulsatile Mass, Normal Bowel Sounds, Soft Genitalia: Deferred Pelvic: Deferred Rectal: Deferred Extremities: No calf tenderness, Normal capillary refill, Normal inspection, Normal range of motion, Non-tender, No pedal edema Musculoskeletal : Apperance: Normal 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 Was a procedure done?: No CP Differential Dx Differential Diagnosis: Angina, Anxiety / Panic Attack, Electrolyte Disorder, Hyperventilation Differential Diagnosis: Angina, Chest Wall Pain, Costochondritis, Esophageal reflux/spasm, Gastritis, Myocardial Infarction, Pneumonia X-Ray, Labs, Meds, VS Vital Signs Date Time Temp Pulse Resp B/P (MAP) Pulse Ox O2 Delivery O2 Flow Rate FiO2 04/02/24 05:16 98.8 88 20 157/93 (114) 96 04/02/24 05:12 98.3 82 12 123/73 (90) 98 98.3 04/02/24 05:12 82 12 98 Nasal Cannula* 2 28 04/02/24 04:52 87 Lab Test 04/02/24 04:55 Range/Units White Blood Count Pending Red Blood Count Pending Hemoglobin Pending Hematocrit Pending Mean Corpuscular Volume Pending Mean Corpuscular Hemoglobin Pending Mean Corpuscular Hemoglobin Concent Pending Red Cell Distribution Width Pending Platelet Count Pending Mean Platelet Volume Pending Neutrophils (%) (Auto) Pending Lymphocytes (%) (Auto) Pending Monocytes (%) (Auto) Pending Basophils (%) (Auto) Pending Neutrophils # (Auto) Pending Lymphocytes # (Auto) Pending Monocytes # (Auto) Pending Sodium Level Pending Potassium Level Pending Chloride Level Pending Carbon Dioxide Level Pending Anion Gap Pending Blood Urea Nitrogen Pending Creatinine Pending Glomerular Filtration Rate Calc Pending BUN/Creatinine Ratio Pending Serum Glucose Pending Calcium Level Pending Troponin I High Sensitivity Pending Current Medications Medications (Trade) Dose Ordered Sig/Ayana Route Start Time Stop Time Status Last Admin Ondansetron HCl (Zofran) 4 mg ONCE ONCE IV 04/02/24 05:45 04/02/24 05:47 DC 04/02/24 05:49 Time of 1ST Reevaluation: 05:27 Reevaluation 1ST: Unchanged Patient Education/Counseling: Diagnosis, Treatment Family Education/Counseling: No Family Present Departure 1 Departure Time of Disposition: 06:09 (Patient presented with syncope today and should be admitted. Data: 1. I ordered and reviewed the result of at least 3 labs including a CBC, BMP, and troponin. 2. I independently interpreted the following tests: EKG which shows a sinus arrhythmia and a chest x-ray which shows benign chest..Risk:This patient has a high risk of morbidity due to further diagnostic testing or treatment and may suffer from an acute cardiac, neurologic, or infectious disorder. Rationale: Patient should be admitted to the hospital for further management.) Impression: Primary Impression: Chest pain Qualified Codes: R07.89 - Other chest pain Additional Impression: Syncope and collapse Disposition: ADMITTED INPATIENT Admit to: Med Surg Condition: Guarded Critical Care Note Critical Care Time?: Yes (35 min-critical care time only) Critical care comment: Active chest pain and witnessed syncope Authorized and Performed by: Lauryn Lutz MD Total critical care time: Approximately 33 minutes Due to a high probability of clinically significant, life threatening deterioration, the patient required my highest level of preparedness to intervene emergently and I personally spent this critical care time directly and personally managing the patient. This critical care time included obtaining a history; examining the patient; pulse oximetry; ordering and review of studies; arranging urgent treatment with development of a management plan; evaluation of patient's response to treatment; frequent reassessment; and, discussions with other providers. This critical care time was performed to assess and manage the high probability of imminent, life-threatening deterioration that could result in multi-organ failure. It was exclusive of separately billable procedures and treating other patients and teaching time. Please see my other sections and the rest of the note for further information on patient assessment and treatment. Stability Stability form required: No Heart Score Heart Score: Heart Score Response (Comments) Value History Moderate Suspicious 1 EKG Normal 0 Age 45-64 1 Risk Factors >3 or Hx ASHD 2 Troponin Normal limit 0 Total 4 I personally scribed for LAURYN LUTZ MD ([email or web address]) on 04/02/24 at 05:35. Elect ronically submitted by Andrew Gallagher ([facility]). LAURYN ULTZ MD Apr 02, 2024 05:35
[2024-04-02] MEDS: ONDANSETRON HCL 4 MG/2 ML VIAL IV ONE ×3 (05:49→07:39)
--- NOTE | 2024-04-02 06:01 | DVH ---
CHEST RADIOGRAPH Indication:chest pain Technique: Single frontal view of the chest was obtained COMPARISON: CHEST PORTABLE on DOS: 01/04/22, CXRP on DOS: 01/04/22 FINDINGS: Lines and Tubes: None Lungs: Clear Pleura: No effusion. No pneumothorax. Cardiomediastinal contours: Unremarkable Bones: Unremarkable IMPRESSION: No acute disease.
[2024-04-02 06:51] LABS: Basophils # (auto) 0.1 10 ^3/uL (0-0.2); Basophils % (auto) 0.5 % (0.0-2.0); Eosinophils # (auto) 0 10 ^3/uL (0-0.8); Eosinophils % (auto) 0.1 % (0.0-7.0); Hematocrit 45.8 % (41.0-53.0); Hemoglobin 15.7 g/dL (13.5-17.5); Lymphocytes # (auto) 2.8 10 ^3/uL (0.4-5.4); Lymphocytes % (auto) 26.9 % (10.0-50.0); Mean Corpuscular Hemoglobin 29.5 pg (28.0-32.0); Mean Corpuscular Hgb Conc. 34.4 g/dL (32.0-36.0); Mean Corpuscular Volume 85.8 fL (80.0-100.0); Monocytes # (auto) 0.6 10 ^3/uL (0-1.3); Monocytes % (auto) 6.1 % (0.0-12.0); Neutrophils # (auto) 6.9 10 ^3/uL (1.6-8.6); Neutrophils % (auto) 66.4 % (37.0-80.0); Nucleated Red Blood Cells % 0.1 %; Platelet Count (auto) 373 10^3/uL (140-450); Red Blood Cells 5.34 10^6/uL (4.5-5.90); White Blood Cell 10.4 10^3/uL (4.4-10.8)
--- NOTE | 2024-04-02 06:53 | ECG ---
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
[2024-04-02 07:13] LABS: Chloride 104 mmol/L (98-107); Potassium 3.7 mmol/L (3.5-5.1); Sodium 135 mmol/L (136-145)
[2024-04-02 07:14] LABS: Anion Gap 14 (5-15); Calcium 9.9 mg/dL (8.7-10.4); Carbon Dioxide 17 mmol/L (20-31)
[2024-04-02 07:19] LABS: BUN/Creatinine Ratio 13.7 (10.0-20.0); Blood Urea Nitrogen 13 mg/dL (9-23); Glucose 102 mg/dL (74-106)
[2024-04-02] MEDS: MORPHINE SULFATE INJ 2 MG/ml SYRG IV ONE (07:40)
[2024-04-02] MEDS: MAALOX PLUS or MAALOX 30 ML PO ONE (08:28)
[2024-04-02] MEDS ORDERED: AMLO1TAB23 PO (10:02)
[2024-04-02] MEDS ORDERED: FENO145T27 PO (10:02)
[2024-04-02] MEDS ORDERED: GABA800T97 PO (10:02)
[2024-04-02] MEDS ORDERED: OXYC-998 PO (10:07)
[2024-04-02] MEDS ORDERED: ASPI1TAB20 PO (10:13)
[2024-04-02] MEDS ORDERED: DOCUSATE SOD 100 MG CAP PO PRN (10:15)
[2024-04-02] MEDS ORDERED: ACETAMINOPHEN 325 MG TAB PO PRN (10:15)
[2024-04-02] MEDS ORDERED: MORPHINE SULFATE INJ 2 MG/ml SYRG IV PRN (10:15)
[2024-04-02] MEDS ORDERED: NITROGLYCERIN 0.4 MG SL TAB SL PRN (10:15)
--- NOTE | 2024-04-02 10:35 | DVHHP2 ---
History of Present Illness Reason for Visit: Palpitations History of Present Illness Willy Guan is a 63-year-old male with past medical history of hypertension, hyperlipidemia, TIA, BPH, sleep apnea, and anxiety who comes in with complaints of palpitations, dizziness, and hypertension. Patient states that he usually does not drink, but last night he had a few drinks while watching the game. He attempted to go to bed about 0100 when he began expe riencing palpitations, chest tightness, dizziness, and lightheadedness. He checked his BP and it was in the 180's prompting him to come to the hospital. The patient has had TIA's in the past and he was concerned about risk of stroke. While waiting in the ER the patient had a syncopal episode, followed by severe nausea and vomiting. Cardiovascular: HTN, hyperipidemia Pulmonary: Other (sleep apnea) Renal/: Benign prostatic enlarg. Past Surgical History: Appendectomy, Other (lithotripsy) Family History: None Smoke: <1 pack per day ALCOHOL: rare Drugs: None Lives: with Family Domestic Violence: Neg Review of Systems Constitutional: Yes: Weakness; No: Fever, Chills, Sweats, Malaise, Other Eyes: No: Pain, Vision change, Conjunctivae inflammation, Eyelid inflammation, Other, Redness ENT: No: Ear pain, Ear discharge, Nose pain, Nose discharge, Nose congestion, Mouth pain, Mouth swelling, Throat pain, Throat swelling, Other Respiratory: No: Cough, Dry, Shortness of breath, SOB with excertion, Wheezing, Hemoptysis, Pleuritic Pain, Sputum, Wheezing, Other Cardiovascular: Chest Pain, Palpitations; No: Orthopnea, Paroxysmal Noc. Dyspnea, Edema, Lt Headedness, Other Gastrointestinal: Nausea, Vomiting; No: Abdominal Pain, Diarrhea, Constipation, Melena, Hematochezia, Other Genitourinary: No Dysuria, No Frequency, No Incontinence, No Hematuria, No Retention, No Other Musculoskeletal: No: other, neck pain, shoulder pain, arm pain, back pain, hand pain, leg pain, foot pain Skin: No: Rash, Lesions, Jaundice, Bruising, Other Neurological: Other (dizzy); No: Weakness, Numbness, Incoordination, Change in speech, Confusion, Seizures Allergies: Coded Allergies: Ibuprofen (Verified Allergy, Unknown, 02/22/15) Uncoded Allergies: MUSCLE RELAXERS (Allergy, Unknown, 02/22/15) Medications Current Medications Medications Dose Ordered Sig/Ayana Route Start Time Stop Time Status Last Admin Dose Admin Patient Own Medication 10 mg DAILY PO 04/02/24 10:00 UNV Patient Own Medication 1 tab DAILY PO 04/03/24 10:00 UNV Patient Own Medication 1 tab DAILY PO 04/03/24 10:00 UNV Patient Own Medication 1 tab TID PO 04/02/24 14:00 UNV Sodium Chloride 10 ml Q8HR IV 04/02/24 14:00 UNV Ondansetron HCl 4 mg Q4HP PRN IV 04/02/24 10:15 UNV Docusate Sodium 100 mg BIDPRN PRN PO 04/02/24 10:15 UNV Acetaminophen 650 mg Q6HP PRN PO 04/02/24 10:15 UNV Nitroglycerin 0.4 mg Q5MINP PRN SL 04/02/24 10:15 UNV Morphine Sulfate 2 mg Q30M PRN IV 04/02/24 10:15 UNV Patient Own Medication 10 mg TIDP PRN PO 04/02/24 10:15 UNV Exam Vital Signs Vital Signs Date Time Temp Pulse Resp B/P (MAP) Pulse Ox O2 Delivery O2 Flow Rate FiO2 04/02/24 08:31 68 17 96 Room Air* 0 21 04/02/24 08:10 137/81 04/02/24 08:00 98.1 98.1 General Appearance: Alert, Oriented X3, Cooperative, mild distress HEENT: Atraumatic, PERRLA, Mucous membr. moist/pink Respiratory: Clear to auscultation, Normal air movement Cardiovascular: Regular rate, Normal S1, Normal S2 Abdominal: Normal bowel sounds, Soft, No tenderness Extremities: No clubbing, No cyanosis, No edema Skin: No rashes, No breakdown, No significant lesion Neuro: Normal gait, Normal speech, Strength at 5/5 X4 ext Psych/Mental Status: Mental status NL, Mood NL Labs/Xrays Labs Test 04/02/24 06:06 04/02/24 04:55 Range/Units Troponin I High Sensitivity 7 </=54 ng/L White Blood Count 10.4 4.4-10.8 10^3/uL Red Blood Count 5.34 4.5-5.90 10^6/uL Hemoglobin 15.7 13.5-17.5 g/dL Hematocrit 45.8 41.0-53.0 % Mean Corpuscular Volume 85.8 80.0-100.0 fL Mean Corpuscular Hemoglobin 29.5 28.0-32.0 pg Mean Corpuscular Hemoglobin Concent 34.4 32.0-36.0 g/dL Red Cell Distribution Width 14.0 11.8-14.3 % Platelet Count 373 140-450 10^3/uL Mean Platelet Volume 8.5 6.9-10.8 fL Neutrophils (%) (Auto) 66.4 37.0-80.0 % Lymphocytes (%) (Auto) 26.9 10.0-50.0 % Monocytes (%) (Auto) 6.1 0.0-12.0 % Eosinophils (%) (Auto) 0.1 0.0-7.0 % Basophils (%) (Auto) 0.5 0.0-2.0 % Neutrophils # (Auto) 6.9 1.6-8.6 10 ^3/uL Lymphocytes # (Auto) 2.8 0.4-5.4 10 ^3/uL Monocytes # (Auto) 0.6 0-1.3 10 ^3/uL Eosinophils # (Auto) 0 0-0.8 10 ^3/uL Basophils # (Auto) 0.1 0-0.2 10 ^3/uL Nucleated Red Blood Cells 0.1 % Sodium Level 135 L 136-145 mmol/L Potassium Level 3.7 3.5-5.1 mmol/L Chloride Level 104 98-107 mmol/L Carbon Dioxide Level 17 L 20-31 mmol/L Anion Gap 14 5-15 Blood Urea Nitrogen 13 9-23 mg/dL Creatinine 0.95 0.700-1.30 mg/dL Glomerular Filtration Rate Calc 91 >90 mL/min BUN/Creatinine Ratio 13.7 10.0-20.0 Serum Glucose 102 74-106 mg/dL Calcium Level 9.9 8.7-10.4 mg/dL CHEST RADIOGRAPH FINDINGS: Lines and Tubes: None Lungs: Clear Pleura: No effusion. No pneumothorax. Cardiomediastinal contours: Unremarkable Bones: Unremarkable IMPRESSION: No acute disease. Assessment/Plan Assessment/Plan Assessment: Syncope and collapse, Hypertensive urgency, Nausea and vomiting, Hyperlipidemia, Plan: Admit to Tele, Cardiology consult, Consider ECHO, Fall risk precautions, Home medications reconciled, Antiemetics PRN, Antihypertensives PRN, Plan discussed with: Patient My Orders Orders - CLARISA QUINTANILLA Procedure Category Date Status Time (Nf) Benazepril Hcl PHA 04/02/24 Logged 10:00 (Nf) Amlodipine PHA 04/03/24 Logged Besylate 10:00 (Nf) Fenofibrate PHA 04/03/24 Logged 10:00 (Nf) Gabapentin PHA 04/02/24 Logged 14:00 Admit ADMIT 04/02/24 Transmitted 10:03 Code Status CODE 04/02/24 Transmitted 10:03 2 Gm Sodium Diet DIET 04/02/24 Transmitted Lunch Sodium Chloride Lock PHA 04/02/24 Logged (Saline Lock Ns) 14:00 Ondansetron Hcl PHA 04/02/24 Logged (Zofran) 10:15 Docusate Sodium PHA 04/02/24 Logged Capsule (Colace 10:15 Fall Risk Precautions [facility] 04/02/[address] 10:03 Complete Blood Count LAB 04/03/24 Verified 04:00 Comprehensive LAB 04/03/24 Verified Metabolic Panel 04:00 Condition: Serious [facility] 04/02/24 In Process 10:03 Acetaminophen Tablet [facility] 04/02/24 Logged (Tylenol Tablet) 10:15 Nitroglycerin PHA 04/02/24 Logged Sublingual (Ntrostat 10:15 Morphine Sulfate PHA 04/02/24 Logged Injection 10:15 Stat Ekg For Chest [facility] 04/02/24 In Process Pain 10:03 Notify Md Of Changes [facility] 04/02/24 In Process From Base 10:03 Technical Manager For [facility] 04/02/24 In Process 24 Hours 10:03 Emergency Dysrhythmia [facility] 04/02/24 In Process Protocol 10:03 Rhythm Strips Once [facility] 04/02/24 In Process Every Shift 10:03 Oxygen By Nasal RT 04/02/24 Transmitted Cannula 10:03 (Nf) Oxycodone Hcl PHA 04/02/24 Logged (Oxycodone Hydrochlor 10:15 Date of Service: Apr 02, 2024 Billing Provider: CLARISA QUINTANILLA Common Visit Codes: [id number] INP/OBS CARE (MOD) CLARISA QUINTANILLA Apr 02, 2024 10:35
[2024-04-02] MEDS ORDERED: hydrALAZINE HCL 20 MG/ML VL IV PRN (11:30)
[2024-04-02] MEDS ORDERED: METOCLOPRAMIDE HCL 5MG/ml INJ 2ml VIAL IV PRN (11:30)
[2024-04-02] MEDS: ONDANSETRON HCL 4 MG/2 ML VIAL IV PRN (13:17)
[2024-04-02] MEDS: oxyCODONE HCL 5MG TAB PO PRN (13:18)
[2024-04-02] MEDS: GABAPENTIN 400 MG CAP PO SCH (14:12)
[2024-04-02] MEDS: SODIUM CHLOR 0.9% PF (SALINE LOCK) 10ML VIAL/SYR IV SCH (14:12)
[2024-04-02 14:48] LABS: Magnesium 2.1 mg/dL (1.6-2.6)
[2024-04-02 14:49] LABS: Lactic Acid w/Reflex 2.1 mmol/L (0.4-2.0)
[2024-04-02 14:50] LABS: INR 1.08 (0.9-1.15); Partial Thromboplastin Time 24.6 SEC (24.5-34.5); Phosphorus 3.1 mg/dL (2.4-5.1); Prothrombin Time 11.4 sec (9.3-11.8)
--- NOTE | 2024-04-02 15:08 | DVH ---
CLINICAL HISTORY: Syncope TECHNIQUE: Duplex carotid Doppler ultrasound was performed. Grayscale, color-flow, and spectral wavef orm analysis was performed. COMPARISON: None FINDINGS: There is [id number] calcified plaque seen on downs scale imaging in the carotid bifurcations and proximal ICAs bilaterally. There is no significant elevation of the peak systolic velocity. There is no significant spectral broadening. Color doppler examination demonstrates no evidence for signi ficant turbulent flow. Findings correspond to the less than 50% stenosis category. Antegrade flow i s noted in both vertebral arteries. EXAMINATION DATA: RIGHT PSV (cm/s) EDV (cm/s) ICA 90 16 CCA 89 ECA 188 ICA/CCA Ratio: 1.0 Vertebral Flow: antegrade LEFT PSV (cm/s) EDV (cm/s) ICA 99 41 CCA 70 ECA 126 ICA/CCA Ratio: 1.4 Vertebral Flow: antegrade IMPRESSION: Findings consistent with the less than 50% carotid stenosis category bilaterally.
--- NOTE | 2024-04-02 15:13 | DVH ---
CLINICAL INFORMATION: 63 years old, Male; Syncope. TECHNIQUE: Axial imaging was obtained through the brain without contrast. Coronal and sagittal refor matted images were obtained, reviewed, and stored. Images were reviewed in brain and bone windows. A ll CT scans at this medical facility are performed using dose modulation techniques as appropriate to a performed exam including the following: Automated exposure control was utilized; adjustment of the MA and/or KV according to patient size; and use of iterative reconstruction technique. CTDIvol = 58.22 mGy DLP = 932.15 mGy-cm COMPARISON: None FINDINGS: There is no acute intracranial hemorrhage or extraaxial fluid collection. No mass effect o r midline shift. The ventricles and sulci are within normal limits in size for age. Basal cisterns a re patent. The calvarium is unremarkable. Paranasal sinuses and mastoid air cells are clear. IMPRESSION: No CT evidence of acute intracranial abnormality.
--- NOTE | 2024-04-02 18:21 | DVHINCON2 ---
Date Seen: Apr 02, 2024 Referring Physician Tammy Bentley NP Reason for Consultation Syncope History of Present Illness Willy Guan is a 63-year-old male patient who presents to the ED with complaint of palpitation, nonradiating oppressive retrosternal chest pain and dyspnea and functional class four which lasted for 1 hour, patient believes symptoms were triggered by alcohol consumption (he drank 12 beers between 8:00 p.m. until midnight), least symptoms started at 1:00 a.m., prompting his visit to the ED at 5:00 a.m. while waiting in the lobby patient presented nausea vomiting lean forward and had a mechanical fall with no head trauma and no loss of consciousness. Denies fever, chills, syncope, diarrhea, constipation, bleeding, dysuria, recent travels, sick contacts and motor or sensory deficits. Past medical history: Hypertension, dyslipidemia, prediabetes, 2015 TIA, sludge in gallbladder, chronic back pain secondary to cervical discopathy. Surgical history: Denies Family history: Mother had diabetes Social history: Lives in [place] with . Is a current smoker (40 pack-year history of smoking). Denies current alcohol and other drug abuse. Patient said that he has not drank as much for over 10 years, it was exceptional since he had a gathering with old friends Allergies: Ibuprofen and muscle relaxers (patient refuses allergy) Home medication: Fenofibrate, amlodipine, benazepril, oxycodone Patient seen and examined at bedside. Currently is asymptomatic. No events seen in monitor technician. Past Medical History Per HPI Past Surgical History Per HPI Family History: Family history: Arthritis G8 MOTHER G8 FATHER Family history: Cardiovascular disease G8 FATHER Family history: Diabetes mellitus G8 BROTHER G8 SISTER Hypertension Seizure disorder (situation) Stroke G8 MOTHER Family History Per HPI Social History Per HPI Allergies: Coded Allergies: Ibuprofen (Verified Allergy, Unknown, 02/22/15) Uncoded Allergies: MUSCLE RELAXERS (Allergy, Unknown, 02/22/15) Home Meds Reported Medications Aspirin (Aspir-81) 81 Mg Tab, 1 TAB PO DAILY, #30 TAB 5 Refills 04/02/24 Oxycodone HCl (Oxycodone Hydrochloride) 10 Mg Tab, 10 MG PO TIDP PRN, TAB 04/02/24 Amlodipine Besylate (Amlodipine Besylate) 10 Mg Tab, 1 TAB PO DAILY 04/02/24 Fenofibrate (FENOFIBRATE) 145 Mg Tab, 1 TAB PO DAILY 04/02/24 Gabapentin (Gabapentin) 800 Mg Tab, 1 TAB PO TID 04/02/24 Benazepril Hcl (Benazepril Hcl) 20 Mg Tab, 10 MG PO DAILY for 30 Days, MG 02/10/16 Discontinued Reported Medications [Phenazopyridine] No Conflict Check, 100 MG PO BID, #40 10/21/16 Finasteride (Finasteride) 5 Mg Tab, 5 MG PO DAILY, TAB 07/21/16 Tamsulosin Hcl (Flomax) 0.4 Mg Cap, 0.4 MG PO DAILY, CAP 07/21/16 Atorvastatin Calcium (ATORVASTATIN CALCIUM) 40 Mg Tab, 40 MG PO, TAB 07/21/16 Famotidine (Famotidine) 20 Mg Tab, 20 MG PO, TAB 04/08/16 Temazepam (Restoril) 15 Mg Cap, 15 MG PO, CAP 04/08/16 Tizanidine Hydrochloride (Zanaflex) 4 Mg Cap, 1 CAP PO DAILY, #30 CAP 02/10/16 Amlodipine Besylate (Amlodipine Besylate) 5 Mg Tab, 5 MG PO DAILY for 30 Days, MG 02/10/16 Gabapentin (Neurontin) 100 Mg Cap, 3 CAP PO TID, #90 CAP 2 Refills 12/07/15 Discontinued Scripts Tramadol Hcl (Tramadol Hcl) 50 Mg Tab, 50 MG PO Q12HP PRN for 5 Days, #10 TAB Prov:CHANEL SCHWARTZ MD 07/22/23 Ondansetron Odt 4MG Tab (ZOFRAN PO) 4 Mg Tb, 4 MG PO Q8HP PRN for 5 Days, #15 TAB ODT TAB-DISSOLVE IN MOUTH, THEN SWALLOW Prov:CHANEL SCHWARTZ MD 07/22/23 Metronidazole (Flagyl) 500 Mg Tab, 500 MG PO TID, #30 Prov:GEORGE JACOB MD 06/21/18 Levofloxacin (Levaquin) 500 Mg Tab, 500 MG PO DAILY, #10 Prov:GEORGE JACOB MD 06/21/18 Meclizine Hcl (Meclizine Hcl) 25 Mg Tab, 25 MG PO Q6HPRN PRN for DIZZINESS, #20 TAB Prov:ANIA BERGERON MD 10/24/16 Current Medications Current Medications Medications (Trade) Dose Ordered Sig/Ayana Route PRN Reason Start Time Stop Time Status Last Admin Benazepril HCl (Lotensin Tablet) 10 mg DAILY PO 04/03/24 10:00 Amlodipine Besylate (Norvasc Tablet) 10 mg DAILY PO 04/03/24 10:00 Patient Own Medication 1 tab DAILY PO 04/03/24 10:00 Gabapentin (Neurontin Capsule) 800 mg TID PO 04/02/24 14:00 04/02/24 14:12 Sodium Chloride (Saline Lock Ns) 10 ml Q8HR IV 04/02/24 14:00 04/02/24 14:12 Ondansetron HCl (Zofran) 4 mg Q4HP PRN IV NAUSEA / VOMITING 04/02/24 10:15 04/02/24 13:17 Docusate Sodium (Colace Capsule) 100 mg BIDPRN PRN PO FOR CONSTIPATION 04/02/24 10:15 Acetaminophen (Tylenol Tablet) 650 mg Q6HP PRN PO PAIN SCALE 1-3 OR TEMP>100.4 04/02/24 10:15 Nitroglycerin (Ntrostat Sublingual) 0.4 mg Q5MINP PRN SL FOR CHEST PAIN 04/02/24 10:15 Morphine Sulfate 2 mg Q30M PRN IV FOR CHEST PAIN 04/02/24 10:15 Oxycodone HCl 10 mg TIDP PRN PO SEVERE PAIN (7-10 PAIN SCALE) 04/02/24 11:00 04/02/24 13:18 Aspirin (Ecotrin Enteric Coated Tablet) 81 mg DAILY PO 04/03/24 10:00 Metoclopramide HCl (Reglan Injection) 10 mg Q6HPRN PRN IV NAUSEA / VOMITING 04/02/24 11:30 Hydralazine HCl (Apresoline Injection) 10 mg Q6HP PRN IV SBP>150 04/02/24 11:30 Review of Systems Per HPI Vital Signs Vital Signs Date Time Temp Pulse Resp B/P (MAP) Pulse Ox O2 Delivery O2 Flow Rate FiO2 04/02/24 13:00 98.6 62 17 144/89 (107) 91 98.6 04/02/24 12:18 Room Air* 0 21 Physical Exam Patient lying in bed, in no acute distress General: Lucid, afebrile, mucosae are moist Cardiovascular: Normal S1 and S2. No murmurs, gallops or rubs Respiratory: Normal ventilation mechanics. Clear lung sounds on auscultation Abdomen: Soft, nontender, no organomegaly, normal bowel sounds MSK/skin: Mobilizes 4 limbs. Skin is dry and warm Neurological: Oriented in 3 spheres. No motor no sensitive deficits. Pupils are isocoric and reactive Labs/Diagnostic Data Labs Test 04/02/24 16:25 04/02/24 14:19 04/02/24 06:06 04/02/24 04:55 Range/Units Lactic Acid Level 2.0 0.4-2.0 mmol/L Prothrombin Time 11.4 9.3-11.8 sec Prothrombin Time INR 1.08 0.9-1.15 Activated Partial Thromboplast Time 24.6 24.5-34.5 SEC Hemoglobin A1c 5.3 <5.7 % A1C Phosphorus Level 3.1 2.4-5.1 mg/dL Magnesium Level 2.1 1.6-2.6 mg/dL B-Type Natriuretic Peptide 17.71 0-100 pg/mL Triglycerides Level 162 H < 150 mg/dL Cholesterol Level 182 < 200 mg/dL LDL Cholesterol 122 H < 100 mg/dL HDL Cholesterol 41 40-59 mg/dL Thyroid Stimulating Hormone (TSH) 0.97 0.55-4.78 uIU/mL Troponin I High Sensitivity 7 </=54 ng/L White Blood Count 10.4 4.4-10.8 10^3/uL Red Blood Count 5.34 4.5-5.90 10^6/uL Hemoglobin 15.7 13.5-17.5 g/dL Hematocrit 45.8 41.0-53.0 % Mean Corpuscular Volume 85.8 80.0-100.0 fL Mean Corpuscular Hemoglobin 29.5 28.0-32.0 pg Mean Corpuscular Hemoglobin Concent 34.4 32.0-36.0 g/dL Red Cell Distribution Width 14.0 11.8-14.3 % Platelet Count 373 140-450 10^3/uL Mean Platelet Volume 8.5 6.9-10.8 fL Neutrophils (%) (Auto) 66.4 37.0-80.0 % Lymphocytes (%) (Auto) 26.9 10.0-50.0 % Monocytes (%) (Auto) 6.1 0.0-12.0 % Eosinophils (%) (Auto) 0.1 0.0-7.0 % Basophils (%) (Auto) 0.5 0.0-2.0 % Neutrophils # (Auto) 6.9 1.6-8.6 10 ^3/uL Lymphocytes # (Auto) 2.8 0.4-5.4 10 ^3/uL Monocytes # (Auto) 0.6 0-1.3 10 ^3/uL Eosinophils # (Auto) 0 0-0.8 10 ^3/uL Basophils # (Auto) 0.1 0-0.2 10 ^3/uL Nucleated Red Blood Cells 0.1 % Sodium Level 135 L 136-145 mmol/L Potassium Level 3.7 3.5-5.1 mmol/L Chloride Level 104 98-107 mmol/L Carbon Dioxide Level 17 L 20-31 mmol/L Anion Gap 14 5-15 Blood Urea Nitrogen 13 9-23 mg/dL Creatinine 0.95 0.700-1.30 mg/dL Glomerular Filtration Rate Calc 91 >90 mL/min BUN/Creatinine Ratio 13.7 10.0-20.0 Serum Glucose 102 74-106 mg/dL Calcium Level 9.9 8.7-10.4 mg/dL Plasma/Serum Blood Alcohol 79.0 H <10 mg/dL Assessment Rule out acute coronary syndrome Alcohol intoxication Hypertension Dyslipidemia Prediabetes History of TIA Plan/Recommendation Troponin negative, EKG with no ST alteration. Ordered echocardiogram, pending Place patient on telemetry to rule out tachyarrhythmias Ordered additional laboratory workup, including UDS, UA and TSH Discussed plan with Dr. Caputo, patient and nurses: We will monitor telemetry for at least 24 hours, pending echocardiogram. Unlikely acute coronary syndrome. Plan discussed with: Patient, Other (Nurses) Date of Service: Apr 02, 2024 Billing Provider: TREV CAPUTO MD Cardiology Common Codes: 41016-[id number] INP/OBS CARE (High), [id number] CARE 30-74 MIN JOHAN MELGAR RESIDENT Apr 02, 2024 18:21
[2024-04-02] MEDS ORDERED: AMIT-399 GT (19:45)
[2024-04-02] MEDS: ATORVASTATIN 20 MG TAB PO SCH (21:27)
[2024-04-02] MEDS: AMITRIPTYLINE HCL 10 MG TAB GT PRN (23:34)
[2024-04-03 01:00] VITALS: BP 112/72; PULSE 56; RESP 17; TEMP 98; O2SAT 95
[2024-04-03 05:00] VITALS: BP 108/71; PULSE 55; RESP 18; TEMP 98.1; O2SAT 94
[2024-04-03 06:55] LABS: Basophils # (auto) 0.1 10 ^3/uL (0-0.2); Basophils % (auto) 0.8 % (0.0-2.0); Eosinophils # (auto) 0.3 10 ^3/uL (0-0.8); Eosinophils % (auto) 4.6 % (0.0-7.0); Hematocrit 42.4 % (41.0-53.0); Hemoglobin 14.8 g/dL (13.5-17.5); Lymphocytes % (auto) 40.4 % (10.0-50.0); Mean Corpuscular Hemoglobin 30.2 pg (28.0-32.0); Mean Corpuscular Hgb Conc. 34.8 g/dL (32.0-36.0); Mean Corpuscular Volume 86.7 fL (80.0-100.0); Monocytes # (auto) 0.8 10 ^3/uL (0-1.3); Monocytes % (auto) 11.3 % (0.0-12.0); Neutrophils # (auto) 3.2 10 ^3/uL (1.6-8.6); Neutrophils % (auto) 42.9 % (37.0-80.0); Nucleated Red Blood Cells % 0.1 %; Platelet Count (auto) 308 10^3/uL (140-450); Red Cell Distribution Width 14.1 % (11.8-14.3); White Blood Cell 7.5 10^3/uL (4.4-10.8)
[2024-04-03 07:13] LABS: Alanine Aminotransferase 49 U/L (7-40); Albumin 4.2 g/dL (3.2-4.8); Alkaline Phosphatase 44 U/L (46-116); Anion Gap 5 (5-15); Aspartate Aminotransferase 26 U/L (13-40); BUN/Creatinine Ratio 15.3 (10.0-20.0); Bilirubin, Total 0.6 mg/dL (0.2-1.0); Blood Urea Nitrogen 15 mg/dL (9-23); Calcium 9.4 mg/dL (8.7-10.4); Carbon Dioxide 28 mmol/L (20-31); Chloride 105 mmol/L (98-107); Glucose 95 mg/dL (74-106); Potassium 4.1 mmol/L (3.5-5.1); Sodium 138 mmol/L (136-145)
[2024-04-03 08:00] VITALS: PULSE 55; RESP 20
[2024-04-03 08:40] VITALS: BP 137/62; PULSE 60; RESP 20; TEMP 98; O2SAT 95
[2024-04-03] MEDS: ASPirin-EC 81 mg tab PO SCH (09:19)
[2024-04-03] MEDS: amLODIPine BESYLATE 5 MG TAB PO SCH (09:19)
[2024-04-03] MEDS: BENAZEPRIL HCL 10 MG TAB PO SCH (09:20)
[2024-04-03] MEDS: FENOFIBRATE 145MG TABLET PO SCH (10:00)
--- NOTE | 2024-04-03 10:32 | ECG ---
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
--- NOTE | 2024-04-03 10:37 | DVHSR ---
APPROVED REPORT EXAM: Two-dimensional and M-mode echocardiogram with Doppler and color Doppler. Blood Pressure: 132/80 mmHg INDICATION SYNCOPE DIMENSIONS LVDd5.2 (3.8-5.7cm)LA (2D)4.9 (1.9-4.0cm)Aortic Root3.3 (2.0-3.7cm) LVDs3.2 (2.5-4.0cm)LA (MM) (1.9-4.0cm)Aortic Cusp Exc1.7 (1.5-2.0cm) EF (%) 68.2 (55-70%)Rt. Atrium4.4 (1.9-4.0cm)Asc. Aorta cm IVSd1.1 (0.7-1.1cm)RV (D)4.2 (1.8-2.4cm) PWd1.1 (0.7-1.1cm) Mitral Valve MitralMitral Stenosis E wave0.87m/sMV Mean GR.mmHg A wave0.91m/sMV Peak GR.105mmHg E/A ratio1.02D MVAcm2 DECEL [id number] 1/2 Timems Aortic Valve Aortic ValveAortic Stenosis V11.38m/Vasyl Mean GR.6mmHg V21.83m/Vasyl Peak GR.13mmHg Pulmonic Valve V21.05m/s Tricuspid Valve TR Velocity2.43m/s [id number] Conclusion Normal left ventricular size and dimension. Normal left ventricular systolic function estimated ejec tion fraction 55%. There is a grade 1 diastolic dysfunction. Normal right ventricular size and dimension. Normal right ventricular systolic function. Right vent ricular systolic pressure is measured at 25 mm of mercury Normal biatrial size and dimension. Normal aortic valve structure and function. Normal mitral valve structure and function The tricuspid valve appears normal in structure and function. The pulmonary valve is grossly normal No pericardial effusion.
[2024-04-03] MEDS ORDERED: ATOR20TA50 PO (11:53)
[2024-04-03 11:58] LABS: Urine Bacteria None Seen /hpf (None Seen)
[2024-04-03 12:13] LABS: Urine Blood Negative /uL (Negative); Urine Clarity Clear (Clear); Urine Color Light-Yellow (Yellow); Urine Protein, UAD Negative (Negative); Urine Specific Gravity 1.019 (1.001-1.035); Urine Urobilinogen Normal (Negative); Urine WBC 4 /hpf (0 - 3); Urine pH 5.5 (5.0-9.0)
[2024-04-03 12:16] LABS: Amphetamine Screen, Urine Neg (NEGATIVE); Benzodiazephine Screen, Urine Neg (NEGATIVE)
[2024-04-03 12:17] LABS: Barbiturate Scree,Urine Neg (NEGATIVE); Cannabinoid Screen, Urine Neg (NEGATIVE); Cocaine Screen, Urine Pos (NEGATIVE); Opiate Scree,Urine Neg (NEGATIVE); Phencyclidine Screen, Urine Neg (NEGATIVE)
[2024-04-03 12:54] VITALS: BP 132/60; PULSE 59; RESP 18; TEMP 36.7; O2SAT 95
== END 2024-04-03 14:06 | disposition home or self-care (01) | DRG 312 ==
LOC: ER 04:46 → TELE 10:03 → TELE-EAST 10:07
PROVIDERS: ADMIT Nurse Practitioner Family; ATTEND Nurse Practitioner Family
DX: R55 Syncope and collapse (principal); F10.129 Alcohol abuse with intoxication, unspecified; F41.9 Anxiety disorder, unspecified; I25.10 Atherosclerotic heart disease of native coronary artery without angina pectoris; F17.210 Nicotine dependence, cigarettes, uncomplicated; E78.5 Hyperlipidemia, unspecified; G89.29 Other chronic pain; R73.03 Prediabetes; N40.0 Benign prostatic hyperplasia without lower urinary tract symptoms; Y90.9 Presence of alcohol in blood, level not specified; Z88.6 Allergy status to analgesic agent; Z86.73 Personal history of transient ischemic attack (TIA), and cerebral infarction without residual deficits; Z87.442 Personal history of urinary calculi; Z83.3 Family history of diabetes mellitus; Z82.49 Family history of ischemic heart disease and other diseases of the circulatory system; Z82.0 Family history of epilepsy and other diseases of the nervous system; Z82.3 Family history of stroke
CPT/HCPCS: 36415; 70450; 71045; 80048; 80053; 80061; 80307; 80320; 81001; 82306; 82607; 83036; 83605; 83735; 83880; 84100; 84443; 84484; 85025; 85610; 85730; 93005; 93306; 93886; 99291; G0378; J2405

== ENCOUNTER 2024-06-08 03:31 | Emergency (ER) | payer MEDICARE, MEDICAID ==
[~2024-06-08] VITALS: Ht 180.3 cm; Wt 101.7 kg
[~2024-06-08 03:31] MED LIST changes: +AMIT-399 GT; -AMLO1TAB22 PO; +AMLO1TAB23 PO; +ASPI1TAB20 PO; +ATOR20TA50 PO; -ATOR40TA52 PO; -FAMO-12 PO; +FENO145T27 PO; -FINA5TAB4 PO; -GABA100C PO; +GABA800T97 PO; -LEVO500T31 PO; -MECL-90 PO; -METR500T PO; +OXYC-998 PO; -PHENAZOPYRIDINE PO; -TAMS-35 PO; -TEMA15CA5 PO; -TIZA4CAP PO; -TRAM50TA2 PO; -ZOFR4T PO
--- NOTE | 2024-06-08 04:14 | ED.PDOC ---
History of Present Illness HPI Comments 63-year-old male presents with a chief complaint of high blood pressure. Patient reports that he checked his blood pressure at home after drinking Tequila and it was 198/103. Patient mentions that he was told if it was ever that high to go to the ER. Patient denies any pain or symptoms at this time. Chief Complaint: High Blood Pressure Time Seen by MD: 03:57 Primary Care Provider: KITTY HOFFMAN Reviewed Notes: Medications, Allergies Allergies: Coded Allergies: Ibuprofen (Verified Allergy, Unknown, 02/22/15) Uncoded Allergies: MUSCLE RELAXERS (Allergy, Unknown, 02/22/15) Home Meds Active Scripts Clonidine Hydrochloride (Clonidine Hcl) 0.2 Mg Tab, 1 TAB PO BID PRN for 60 Days, #120 TAB 5 Refills Prov:JOYA RINALDI MD 06/08/24 Atorvastatin Calcium (ATORVASTATIN CALCIUM) 20 Mg Tab, 40 MG PO HS for 30 Days, #60 TAB Prov:ALONZO MROA MD 04/03/24 Reported Medications Amitriptyline HCl (Amitriptyline HCl) 10 Mg Tab, 20 MG GT HSPRN PRN, TAB 04/02/24 Aspirin (Aspir-81) 81 Mg Tab, 1 TAB PO DAILY, #30 TAB 5 Refills 04/02/24 Oxycodone HCl (Oxycodone Hydrochloride) 10 Mg Tab, 10 MG PO TIDP PRN, TAB 04/02/24 Amlodipine Besylate (Amlodipine Besylate) 10 Mg Tab, 1 TAB PO DAILY 04/02/24 Fenofibrate (FENOFIBRATE) 145 Mg Tab, 1 TAB PO DAILY 04/02/24 Gabapentin (Gabapentin) 800 Mg Tab, 1 TAB PO TID 04/02/24 Benazepril Hcl (Benazepril Hcl) 20 Mg Tab, 10 MG PO DAILY for 30 Days, MG 02/10/16 Information Source: Patient Mode of Arrival: Ambulatory Severity: Moderate Timing: Minutes Duration: Since onset Prehospital treatment: None Past Medical History PAST MEDICAL HISTORY: Angina, Anxiety, CAD, CVA, High Lipids, HTN, Kidney Stones, TIA Surgical History: Appendectomy Family History Family History: Reviewed,noncontributory to illness Social History Smoker: Cigarettes Alcohol: Occasionally Drugs: Cocaine Lives In: Home Constitutional: denies: chills, diaphoresis, fatigue, fever, malaise, sweats, weakness, others EENTM: denies: blurred vision, double vision, ear bleeding, ear discharge, ear drainage, ear pain, ear ringing, eye pain, eye redness, hearing loss, mouth pain, mouth swelling, nasal discharge, nose bleeding, nose congestion, nose pain, photophobia, tearing, throat pain, throat swelling, voice changes, others Respiratory: denies: cough, hemoptysis, orthopnea, SOB at rest, shortness of breath, SOB with excertion, stridor, wheezing, others Cardiovascular: reports: others (HTN); denies: chest pain, dizzy spells, diaphoresis, Dyspnea on exertion, edema, irregular heart beat, left arm pain, lightheadedness, palpitations, PND, syncope Gastrointestinal: denies: abdomen distended, abdominal pain, blood streaked bowels, constipated, diarrhea, dysphagia, difficulty swallowing, hematemesis, melena, nausea, poor appetite, poor fluid intake, rectal bleeding, rectal pain, vomiting, others Genitourinary: denies: burning, dysuria, flank pain, frequency, hematuria, incontinence, penile discharge, penile sore, pain, testicle pain, testicle swelling, urgency, others Neurological: denies: dizziness, fainting, headache, left sided numbness, left sided weakness, numbness, paresthesia, pre-existing deficit, right sided numbness, right sided weakness, seizure, speech problems, tingling, tremors, weakness, others Musculoskeletal: denies: back pain, gout, joint pain, joint swelling, muscle pain, muscle stiffness, neck pain, others Integumetry: denies: bruises, change in color, change in hair/nails, dryness, laceration, lesions, lumps, rash, wounds, others Allergic/Immunocompromised: denies: Difficulty Healing, Frequent Infections, Hives, Itching, others Hematologic/Lymphatic: denies: anemia, blood clots, easy bleeding, easy bruising, swollen glands, others Endocrine: denies: excessive hunger, excessive sweating, excessive thirst, excessive urination, flushing, intolerance to cold, intolerance to heat, unexplained weight gain, unexplained weight loss, others Psychiatric: denies: anxiety, bipolar disorder, depression, hopeless, panic disorder, schizophrenia, sleepless, suicidal, others All Other Systems: Reviewed and Negative Physical Exam General Appearance: No Apparent Distress, Normal HEENT: Normal ENT Inspection, Pharynx Normal, TMs Normal Neck: Full Range of Motion, Non-Tender, Normal, Normal Inspection Respiratory: Chest Non-Tender, Lungs Clear, No Accessory Muscle Use, No Respiratory Distress, Normal Breath Sounds Cardiovascular: No Edema, No JVD, No Murmur, No Gallop, Normal Peripheral Pulses, Regular Rate/Rhythm Breast Exam: Deferred Gastrointestinal: No Organomegaly, Non Tender, No Pulsatile Mass, Normal Bowel Sounds, Soft Genitalia: Deferred Pelvic: Deferred Rectal: Deferred Extremities: No calf tenderness, Normal capillary refill, Normal inspection, Normal range of motion, Non-tender, No pedal edema Musculoskeletal : Apperance: Normal Neurologic: Alert, silica dry press helper II-XII nml as Tested, No Motor Deficits, Normal Affect, Normal Mood, No Sensory Deficits Cerebellar Function: Normal Reflexes: Normal Skin: Dry, Normal Color, Warm Lymphatic: No Adenopathy Was a procedure done? Was a procedure done?: No Differential Dx Considerations may include: Differential diagnosis includes but not limited to: angina, myocardial infarction, ischemic stroke, intracranial hemorrhage, acute renal injury, end- organ failure and others X-Ray, Labs, Meds, VS Vital Signs Date Time Temp Pulse Resp B/P (MAP) Pulse Ox O2 Delivery O2 Flow Rate FiO2 06/08/24 05:11 88 06/08/24 05:01 97.9 89 20 136/83 (100) 98 97.9 06/08/24 04:15 136/83 06/08/24 03:50 98.1 106 17 135/89 (104) 94 Current Medications Medications (Trade) Dose Ordered Sig/Ayana Route Start Time Stop Time Status Last Admin Ondansetron HCl (Zofran Po) 4 mg ONCE ONCE PO 06/08/24 05:15 06/08/24 05:16 DC 06/08/24 05:18 Time of 1ST Reevaluation: 04:27 Reevaluation 1ST: Unchanged Patient Education/Counseling: Diagnosis, Treatment, Prognosis Family Education/Counseling: No Family Present Departure 1 Departure Time of Disposition: 05:30 Impression: Primary Impression: Hypertension Disposition: 01 HOME / SELF CARE / HOMELESS Condition: Stable e-Prescriptions Clonidine Hydrochloride (Clonidine Hcl) 0.2 Mg Tab 1 TAB PO BID PRN for 60 Days, #120 TAB 5 Refills Prov: JOYA RINALDI MD 06/08/24 Discharged With: Self Critical Care Note Critical Care Time?: No Stability Stability form required: No I personally scribed for JOYA RINALDI MD ([email or web address]) on 06/08/24 at 04:14. Electronically submitted by Trent Velazco ([email or web address]). JOYA RINALDI MD Jun 08, 2024 04:14
[2024-06-08] MEDS: cloNIDine HCL 0.1 MG TAB PO ONE (04:15)
[2024-06-08] MEDS ORDERED: CLON0.2T PO (04:17)
[2024-06-08 05:01] VITALS: BP 136/83; RESP 20; TEMP 97.9; O2SAT 98
[2024-06-08 05:11] VITALS: PULSE 88
[2024-06-08] MEDS: ONDANSETRON ODT 4 MG TAB PO ONE (05:18)
== END 2024-06-08 05:20 | disposition home or self-care (01) ==
LOC: ER 03:31
DX: I10 Essential (primary) hypertension (principal); F17.210 Nicotine dependence, cigarettes, uncomplicated; Z79.82 Long term (current) use of aspirin; Z79.899 Other long term (current) drug therapy; Z86.73 Personal history of transient ischemic attack (TIA), and cerebral infarction without residual deficits; Z88.6 Allergy status to analgesic agent; Z90.49 Acquired absence of other specified parts of digestive tract; Z87.442 Personal history of urinary calculi
CPT/HCPCS: 99283; Q0162